=== PATIENT | male | born 1970 | race Two or more races ===

== ENCOUNTER 2019-06-28 10:32 | Emergency (ER) | payer SELFPAY ==
[~2019-06-28] VITALS: Ht 180.3 cm; Wt 94.3 kg
[2019-06-28 10:40] VITALS: BP 177/106
[2019-06-28] MEDS ORDERED: ACETAMINOPHEN 650 mg PER 20 mL UD PO ONE (10:45)
[2019-06-28] MEDS ORDERED: KETOROLAC TROMETH 60MG/2ML VIAL IM ONE (11:15)
[2019-06-28] MEDS ORDERED: cefTRIAXone SOD 1,000 MG VL IM ONE ×2 (11:30)
== END 2019-06-28 12:11 | disposition home or self-care (01) ==
LOC: ER 10:32
DX: L03.317 Cellulitis of buttock (principal)
CPT/HCPCS: 96372; 99284; J0696; J1885